=== PATIENT | female | born 1955 ===

== ENCOUNTER 2024-07-18 06:37 | Day surgery (SDC) | payer OTHER, SELFPAY | END 2024-07-18 14:21 | disposition home or self-care (01) | LOC: GI 06:37 | PROVIDERS: ATTENDING PHYSICIAN Internal Medicine Gastroenterology | DX: Z12.11 Encounter for screening for malignant neoplasm of colon (principal); K57.30 Diverticulosis of large intestine without perforation or abscess without bleeding; D12.4 Benign neoplasm of descending colon; R12 Heartburn | CPT/HCPCS: 45385; 43235; 88305 ==